=== PATIENT | female | born 1985 | race African-American/Black ===

== ENCOUNTER 2022-03-11 09:05 | Day surgery (SDC) | payer OTHER ==
[2022-03-08 12:04] VITALS: BMI 28.5
[2022-03-11 09:25] VITALS: RESP 18; TEMP 97.3
[2022-03-11 11:14] VITALS: BP 101/61; PULSE 72
== END 2022-03-11 11:30 | disposition home or self-care (01) ==
LOC: FASU-ENDO 09:05
PROVIDERS: ATTEND Internal Medicine Gastroenterology
PROC: 0DB68ZX Excision of Stomach, Via Natural or Artificial Opening Endoscopic, Diagnostic (ICD-10-PCS; 2022-03-11)
PROC: 0DB98ZX Excision of Duodenum, Via Natural or Artificial Opening Endoscopic, Diagnostic (ICD-10-PCS; principal; 2022-03-11 10:12)
DX: K29.50 Unspecified chronic gastritis without bleeding (principal); K31.7 Polyp of stomach and duodenum; R12 Heartburn
CPT/HCPCS: 84703; 88305-TC; 88342-TC